=== PATIENT | male | born 1955 | race Caucasian/White ===

== ENCOUNTER 2018-06-26 21:19 | Emergency (ER) | payer OTHER ==
[~2018-06-26] VITALS: Ht 182.9 cm; Wt 83.9 kg
[~2018-06-26 21:19] MED LIST: FLOMAX PO; NOHOMEMEDICATIONS; PERCOCET 5-3251 EACH PO; PHENERGAN 25 MG25 MG PO; VICODIN 5-5001 EACH PO
[2018-06-26] MEDS ORDERED: CARAFATE 1 GM TA1 G1 PO (21:30)
[2018-06-26] MEDS ORDERED: ZANTAC 150MG T150 MG PO (21:30)
[2018-06-26] MEDS ORDERED: UNICOMPLEX M TA1 TA1 PO (21:31)
[2018-06-26 22:04] LABS: ABSOLUTE BASOPHILS 0.1 thou/uL (0.0-0.2); ABSOLUTE EOSINOPHILS 0.2 thou/uL (0.0-0.7); ABSOLUTE LYMPHOCYTES 2.7 thou/uL (0.8-5.3); ABSOLUTE MONOCYTES 0.7 thou/uL (0.0-1.2); ABSOLUTE NEUTROPHILS 4.4 thou/uL (1.6-8.1); BASOPHILS 0.8 %; EOSINOPHILS 2.2 %; HEMATOCRIT 45.2 % (42.0-52.0); MCH 28.8 pg (26.0-34.0); MCHC 33.2 g/dL (28.0-37.0); MCV 86.8 fL (80.0-100.0); MONOCYTES 8.5 %; MPV 9.6 fl. (7.2-11.1); NUCLEATED RBCS 0 /100WBC; PLATELET COUNT* 235 thou/uL (150-400); POLYS 54.5 %; RBC 5.21 mil/uL (4.50-6.00); RDW-CV 14.2 % (10.5-14.5)
[2018-06-26 22:11] LABS: ANION GAP 7 mmol/L (7-16); BUN 15 mg/dL (7-18); CALCIUM 8.8 mg/dL (8.5-10.1); CHLORIDE 107 mmol/L (98-107); CO2 29 mmol/L (21-32); CREATININE 1.2 mg/dL (0.6-1.3); GLUCOSE 92 mg/dL (70-99); POTASSIUM 3.7 mmol/L (3.5-5.1); SODIUM 143 mmol/L (136-145)
[2018-06-26 22:22] LABS: ALBUMIN 3.5 g/dL (3.4-5.0); ALKALINE PHOSPHATASE 62 U/L (46-116); LIPASE 115 U/L (73-393); NT-PRO BRAIN NAT PEPTIDE 150 pg/mL (<300); SGOT 16 U/L (15-37); SGPT 22 U/L (30-65); TOTAL BILIRUBIN 0.4 mg/dL (<0.1-1.0); TOTAL PROTEIN 7.3 g/dL (6.4-8.2); TROPONIN-I LEVEL <0.06 ng/mL (<0.06)
[2018-06-26 22:51] VITALS: BP 149/87
--- NOTE | 2018-06-27 15:31 | EKG ---
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
== END 2018-06-26 23:05 | disposition home or self-care (01) ==
LOC: M.ERS 21:19
PROVIDERS: Emergency Medicine
DX: R07.89 Other chest pain (principal)

== ENCOUNTER → 2018-12-02 | Outpatient (CLI) | payer OTHER ==
[~2018-12-02] MED LIST changes: +CARAFATE 1 GM TA1 G1 PO; +UNICOMPLEX M TA1 TA1 PO; +ZANTAC 150MG T150 MG PO
--- NOTE | 2018-12-02 13:24 | 2DMMODE ---
[place] [address] 2 D/M-MODE ECHOCARDIOGRAM Name: GEORGE MCKENZIE Room: [facility]#: [id number] Admission: 12/02/18 Attend Phys: Romario Cabrales, Discharge: Date of : 51 Date of Service: 12/02/18 1324 Report #: [id number] THIS REPORT FOR: //name// APPROVED REPORT Study performed: 12/02/2018 09:48:55 EXAM: Comprehensive 2D, Doppler, and color-flow Echocardiogram Patient Location: Out-Patient BSA: 2.07 HR: 58 bpm BP: 120/75 mmHg Other Information Study Quality: Good Indications Abnormal ECG 2D Dimensions IVSd: 11.11 (7-11mm) LVOT Diam: 19.96 (18-24mm) LVDd: 44.89 mm PWd: 10.48 (7-11mm) Ascending Ao: 32.23 (22-36mm) LVDs: 32.69 (25-40mm) Aortic Root: 27.25 mm Volumes Left Atrial Volume (Systole) LA ESV Index: 14.10 mL/m2 Aortic Valve AoV Peak Ralf.: 1.21 m/s AO Peak Gr.: 5.86 mmHg LVOT Max P.06 mmHg AO Mean Gr.: 2.82 mmHg LVOT Mean P.42 mmHg LVOT Max V: 0.87 m/s AO V2 VTI: 21.16 cm LVOT Mean V: 0.54 m/s BIRDIE (VTI): 3.02 cm2 LVOT V1 VTI: 20.46 cm Mitral Valve E/A Ratio: 0.73 MV Decel. Time: 229.99 ms MV E Max Ralf.: 0.52 m/s MV PHT: 66.70 ms MVA (PHT): 3.30 [place] [address] 2 D/M-MODE ECHOCARDIOGRAM Name: GEORGE MCKENZIE Room: [facility]#: [id number] Admission: 12/02/18 Attend Phys: Romario Cabrales, Discharge: Date of : 51 Date of Service: 12/02/18 1324 Report #: [id number] TDI E/Lateral E': 6.50 E/Medial E': 8.67 Medial E' Ralf.: 0.06 m/s Lateral E' Ralf.: 0.08 m/s Pulmonary Valve PV Peak Ralf.: 0.84 m/s PV Peak Gr.: 2.82 mmHg Tricuspid Valve RAP Estimate: 5.00 mmHg TR Peak Gr.: 20.30 mmHg RVSP: 25.30 mmHg PA Pressure: 25.30 mmHg Left Ventricle The left ventricle is normal size. There is normal LV segmental wall motion. There is normal left ventricular wall thickness. Left ventricular systolic function is normal. LVEF is 55-60%. Grade I - abnormal relaxation pattern. Right Ventricle The right ventricle is normal size. The right ventricular systolic function is normal. Atria The left atrium size is normal. The right atrium size is normal. Aortic Valve The aortic valve is normal in structure. No aortic regurgitation is present. There is no aortic valvular stenosis. Mitral Valve The mitral valve is normal in structure. There is no mitral valve regurgitation noted. No evidence of mitral valve stenosis. Tricuspid Valve The tricuspid valve is normal in structure. Trace tricuspid regurgitation. No pulmonary hypertension. Pulmonic Valve The pulmonary valve is normal in structure. There is no pulmonic valvular regurgitation. Great Vessels The aortic root is normal in size. IVC [place] [address] 2 D/M-MODE ECHOCARDIOGRAM Name: GEORGE MCKENZIE Room: [facility]#: [id number] Admission: 12/02/18 Attend Phys: Romario Cabrales, Discharge: Date of : 51 Date of Service: 12/02/18 1324 Report #: [id number] collapses >50% with inspiration. Pericardium There is no pericardial effusion. <Conclusion> The left ventricle is normal size. There is normal left ventricular wall thickness. Left ventricular systolic function is normal. LVEF is 55-60%. Grade I - abnormal relaxation pattern. Trace tricuspid regurgitation. No pulmonary hypertension. IVC is normal in size and collapses >50% with inspiration. <ELECTRONICALLY SIGNED> By: Chaim Vasquez MD, FACC 12/02/18 1324 1324 132 Chaim Vasquez MD, FACC /INF
== END ==
LOC: M.CRD 09:30
DX: R94.31 Abnormal electrocardiogram [ECG] [EKG] (principal)

== ENCOUNTER 2019-03-07 13:02 | Emergency (ER) | payer OTHER ==
[~2019-03-07] VITALS: Ht 182.9 cm; Wt 81.7 kg
[2019-03-07] MEDS ORDERED: OXYCODON-ACETA1 EAC1 PO (13:16)
[2019-03-07 13:36] LABS: ABSOLUTE BASOPHILS 0.1 thou/uL (0.0-0.2); ABSOLUTE EOSINOPHILS 0.1 thou/uL (0.0-0.7); ABSOLUTE LYMPHOCYTES 1.7 thou/uL (0.8-5.3); ABSOLUTE NEUTROPHILS 9.8 thou/uL (1.6-8.1); BASOPHILS 0.5 %; EOSINOPHILS 0.5 %; HEMATOCRIT 45.2 % (42.0-52.0); HEMOGLOBIN 15.2 gm/dL (14.0-18.0); LYMPHOCYTES 13.8 %; MCH 29.6 pg (26.0-34.0); MCHC 33.7 g/dL (28.0-37.0); MCV 87.8 fL (80.0-100.0); MONOCYTES 7.7 %; MPV 9.8 fl. (7.2-11.1); NUCLEATED RBCS 0 /100WBC; PLATELET COUNT* 221 thou/uL (150-400); POLYS 77.5 %; RBC 5.15 mil/uL (4.50-6.00); RDW-CV 13.6 % (10.5-14.5); WBC 12.6 thou/uL (4.0-11.0)
[2019-03-07 13:48] LABS: CALCIUM 8.5 mg/dL (8.5-10.1); CREATININE 1.2 mg/dL (0.6-1.3); POTASSIUM 3.7 mmol/L (3.5-5.1)
[2019-03-07 13:49] LABS: ALBUMIN 3.6 g/dL (3.4-5.0); TOTAL BILIRUBIN 0.6 mg/dL (<0.1-1.0); TOTAL PROTEIN 7.4 g/dL (6.4-8.2)
[2019-03-07] MEDS ORDERED: REGLAN 10 MG TA10 MG PO (16:13)
[2019-03-07 16:26] VITALS: BP 133/78
[2019-03-07 16:53] LABS: URINE BILIRUBIN NEGATIVE (Negative); URINE BLOOD NEGATIVE (Negative); URINE CLARITY CLEAR; URINE COLOR YELLOW; URINE GLUCOSE-RANDOM NEGATIVE (Negative); URINE KETONES NEGATIVE (Negative); URINE LEUKOCYTES-REFLEX NEGATIVE (Negative); URINE NITRITE-REFLEX NEGATIVE (Negative); URINE PROTEIN NEGATIVE (Negative); URINE UROBILINOGEN 0.2 E.U./dl (0.2-1.0)
== END 2019-03-07 16:27 | disposition home or self-care (01) ==
LOC: M.ERS 13:02
PROVIDERS: Personal Emergency Response Attendant
DX: K91.89 Other postprocedural complications and disorders of digestive system (principal); K56.7 Ileus, unspecified; K59.00 Constipation, unspecified; Z90.49 Acquired absence of other specified parts of digestive tract

== ENCOUNTER 2019-03-07 19:30 | Inpatient (IN) | payer OTHER ==
[~2019-03-07] VITALS: Ht 182.9 cm; Wt 81.6 kg
[~2019-03-07 19:30] MED LIST changes: +OXYCODON-ACETA1 EAC1 PO; +REGLAN 10 MG TA10 MG PO
[2019-03-07 19:39] VITALS: BP 166/104
[2019-03-07 23:10] VITALS: BP 169/99
[2019-03-07 23:32] VITALS: BP 184/101
[2019-03-08 08:00] VITALS: BP 170/95
[2019-03-08 16:15] VITALS: BP 132/85
[2019-03-08 19:51] VITALS: BP 123/80
[2019-03-09 03:51] LABS: ABSOLUTE BASOPHILS 0.1 thou/uL (0.0-0.2); ABSOLUTE EOSINOPHILS 0.1 thou/uL (0.0-0.7); ABSOLUTE LYMPHOCYTES 1.6 thou/uL (0.8-5.3); ABSOLUTE MONOCYTES 2.1 thou/uL (0.0-1.2); ABSOLUTE NEUTROPHILS 13.8 thou/uL (1.6-8.1); BASOPHILS 0.3 %; EOSINOPHILS 0.4 %; HEMATOCRIT 45.1 % (42.0-52.0); HEMOGLOBIN 14.7 gm/dL (14.0-18.0); LYMPHOCYTES 9.3 %; MCH 28.5 pg (26.0-34.0); MCHC 32.5 g/dL (28.0-37.0); MCV 87.8 fL (80.0-100.0); MONOCYTES 11.7 %; MPV 9.9 fl. (7.2-11.1); NUCLEATED RBCS 0 /100WBC; PLATELET COUNT* 218 thou/uL (150-400); POLYS 78.3 %; RBC 5.14 mil/uL (4.50-6.00); RDW-CV 13.8 % (10.5-14.5); WBC 17.6 thou/uL (4.0-11.0)
[2019-03-09 04:01] LABS: CALCIUM 8.5 mg/dL (8.5-10.1); CREATININE 1.2 mg/dL (0.6-1.3); POTASSIUM 3.9 mmol/L (3.5-5.1)
[2019-03-09 08:02] VITALS: BP 117/66
[2019-03-09 10:12] VITALS: BP 117/66
[2019-03-09] MEDS ORDERED: COLACE 100 MG100 MG PO (10:57)
[2019-03-09] MEDS ORDERED: MIRALAX119 GM PO (10:58)
== END 2019-03-09 17:17 | disposition home or self-care (01) | DRG 392 ==
LOC: M.ERS 19:30 → M.ORTHSURG 22:25 → M.TBA-ER 22:25 → M.ORTHSURG 23:14
PROVIDERS: ADMIT Surgery
DX: K59.00 Constipation, unspecified (principal); K57.90 Diverticulosis of intestine, part unspecified, without perforation or abscess without bleeding; Z90.49 Acquired absence of other specified parts of digestive tract; Z28.21 Immunization not carried out because of patient refusal; Z79.899 Other long term (current) drug therapy

== ENCOUNTER → 2019-06-09 | Outpatient (CLI) | payer OTHER ==
[~2019-06-09] MED LIST changes: +COLACE 100 MG100 MG PO; +MIRALAX119 GM PO
== END ==
LOC: M.CT 09:04
DX: Z13.6 Encounter for screening for cardiovascular disorders (principal)